=== PATIENT | male | born 1995 | race Caucasian/White ===

== ENCOUNTER 2020-12-21 16:54 | Emergency (ER) | payer OTHER ==
[~2020-12-21] VITALS: Ht 188 cm; Wt 114.4 kg
--- NOTE | 2020-12-21 17:14 | NUR ---
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 THE PATIENT IS NOTED TO HAVE UNEVEN SHOULDERS (RIGHT LOWER THEN LEFT SHOULDER). WILL CONTINUE TO MONITOR THE PATIENT.
--- NOTE | 2020-12-21 17:18 | NUR ---
X-RAY TECH AT THE BEDSIDE
[2020-12-21] MEDS ORDERED: FENTANYL PF 100MCG/2ML AMPUL IV ONE (17:30)
[2020-12-21] MEDS ORDERED: FENTANYL PF 100MCG/2ML AMPUL ONE ×2 (17:57→19:20)
[2020-12-21] MEDS ORDERED: ONDANSETRON HCL/PF 4 MG/2 ML VIAL IV ONE (19:00)
[2020-12-21] MEDS ORDERED: IV NS 0.9% 1,000 ML IV ONE (19:00)
[2020-12-21] MEDS ORDERED: MORPHINE SULFATE INJ 2 MG/ML DISP.SYRIN IV ONE (19:00)
[2020-12-21] MEDS ORDERED: PROPOFOL 1,000 MG/100 ML BOTTLE IV ONE (19:00)
[2020-12-21] MEDS ORDERED: ONDANSETRON HCL/PF 4 MG/2 ML VIAL ONE (19:10)
[2020-12-21] MEDS ORDERED: MORPHINE SULFATE INJ 4 MG/ML DISP.SYRIN ONE (19:11)
[2020-12-21] MEDS ORDERED: PROPOFOL 20 ML IV ONE (19:22)
--- NOTE | 2020-12-21 19:49 | NUR ---
X RAY WAS DONE
--- NOTE | 2020-12-21 19:52 | NUR ---
PT IS AWAKE A&O X3. NO RESPIRATORY DISTRESS. IN ROOM AIR AND DENIES SOB. RESPIRATION REGULAR AND UNLABORED. DENIES PAIN AT THIS TIME. NON S/S POOR CIRCULATION NOTED. REMAINS ATTACHED TO THE MONITOR. ENDORSED TO NIGHT SHITF.
[2020-12-21] MEDS ORDERED: HYDR-4303 PO (20:24)
--- NOTE | 2020-12-21 20:40 | NUR ---
Patient discharged to home in stable condition. Written and verbal after care instructions given. Patient verbalizes understanding of instruction.
[2020-12-21 20:42] VITALS: BP 151/95
== END 2020-12-21 20:42 | disposition home or self-care (01) ==
LOC: ER 16:57
DX: M24.411 Recurrent dislocation, right shoulder (principal); Z98.890 Other specified postprocedural states
CPT/HCPCS: 23650; 73030 ×2; 96361; 96374; 96375; 99152; 99285; J2270; J2405; J2704; J3010; J7030; G0500

== ENCOUNTER 2021-03-17 11:41 | Emergency (ER) | payer OTHER ==
[~2021-03-17] VITALS: Ht 185.4 cm; Wt 117.9 kg
[~2021-03-17 11:41] MED LIST: HYDR-4303 PO
--- NOTE | 2021-03-17 11:41 | NUR ---
BIBS C/O RIGHT SHOULDER PAIN HX OF RIGHT SHOULDER DISLOCATION 6X PRIO TO TODAYS VISIT, PT STATED "I THINK MY SHOULDER IS DILOCATED" DR RUBIO AT BEDSIDE
--- NOTE | 2021-03-17 11:42 | NUR ---
AAOX3, came to ER c/o right shoulder pain possible "dislocated" today. Patient has hx of right shoulder dislocation 6 times prior to today's visit in the last 2 years. Resp is even and unlabored with no apparent distress noted. Awaiting md for eval.
--- NOTE | 2021-03-17 11:56 | NUR ---
Dr Morrison at for eval.
[2021-03-17] MEDS ORDERED: PROPOFOL 20 ML IV ONE ×2 (12:00→12:35)
[2021-03-17] MEDS ORDERED: PROPOFOL 200 MG/20 ML VIAL IV ONE ×2 (12:00→13:00)
--- NOTE | 2021-03-17 12:29 | NUR ---
DR RUBIO, RT, AND RNS AT BEDSIDE FOR RIGHT SHOULDER OPEN REDUCTION UNDER MODERATE SEDATION. 250MG TOTAL WAS GIVEN TO PT DURING PROCEDURE.
--- NOTE | 2021-03-17 12:41 | NUR ---
X RAY AT BEDSIDE CONFIRMING PLACEMENT OF RIGHT SHOULDER
--- NOTE | 2021-03-17 13:20 | NUR ---
PT IS UNABLE TO GET A RIDE HOME, STATED HE ONLY HAS HARMON AND CANNOT GET AN UBER.
--- NOTE | 2021-03-17 16:23 | NUR ---
PATIENT WAS DICHARGE IN STABLE CONDTION. IV WAS REMOVED AND 2X2 GUAZE WAS PLACED. PT WAS INSTRUCTED NOT TO DRIVE AND TO REMAIN IN THE WAITING ROOM.
[2021-03-17 16:24] VITALS: BP 138/91
== END 2021-03-17 16:25 | disposition home or self-care (01) ==
LOC: ER 11:43
DX: M24.411 Recurrent dislocation, right shoulder (principal); Z98.890 Other specified postprocedural states; X50.1XXA Overexertion from prolonged static or awkward postures, initial encounter; Y93.89 Activity, other specified; Y92.89 Other specified places as the place of occurrence of the external cause; Y99.8 Other external cause status
CPT/HCPCS: 23650; 73020; 73030; 99152; 99153; 99285; J2704 ×2; J7030; G0500